=== PATIENT | female | born 1990 | race Caucasian/White ===

== ENCOUNTER 2017-03-19 21:45 | Emergency (ER) | payer OTHER ==
[~2017-03-19] VITALS: Ht 157.5 cm; Wt 96.4 kg
[2017-03-19 22:27] VITALS: BP 144/94
== END 2017-03-19 22:28 | disposition home or self-care (01) ==
LOC: ER 21:46
DX: J02.9 Acute pharyngitis, unspecified (principal)
CPT/HCPCS: 87081; 87880; 99284